=== PATIENT | female | born 1950 | race Caucasian/White ===

== ENCOUNTER 2020-11-24 18:09 | Emergency (ER) | payer MEDICARE, MEDICAID | END 2020-11-24 18:50 | disposition left against medical advice (07) | LOC: JD.ED 18:09 | DX: R06.02 Shortness of breath (principal); Z53.21 Procedure and treatment not carried out due to patient leaving prior to being seen by health care provider ==

== ENCOUNTER 2020-11-24 19:22 | Emergency (ER) | payer MEDICARE, MEDICAID ==
--- NOTE | 2020-11-24 20:02 | EDM.PDOC ---
ED HPI GENERAL MEDICAL PROBLEM - General Chief Complaint: Respiratory Problem Stated Complaint: [facility] Time Seen by Provider: 11/24/20 19:34 Source of Information: Reports: Patient History Limitations: Reports: No Limitations - History of Present Illness INITIAL COMMENTS - FREE TEXT/NARRATIVE: Patient is a 70-year-old female who complains of being short of breath and having a nonproductive cough which is gotten worse over the last several days. Patient has been followed by her PCP who gave her a prescription for Zithromax 2 days ago and for prednisone approximately 1 week ago. She feels that her symptoms have gotten worse and she is having some dyspnea with exertion. She denies any fever or chills or nausea vomiting or diarrhea. Patient has no loss of smell or taste. She has not been vaccinated against Covid. She is not a cigarette smoker. Duration: Week(s): (1) Location: Reports: Chest Quality: Reports: Pressure Severity: Mild Improves with: Reports: None Worsens with: Reports: Movement Associated Symptoms: Reports: No Other Symptoms - Related Data Allergies Allergy/AdvReac Type Severity Reaction Status Date / Time amlodipine Allergy Severe Swelling Verified 11/24/20 20:14 amoxicillin [From Augmentin] Allergy Severe Vomiting Verified 11/24/20 20:14 cefuroxime Allergy Severe Abdominal Verified 11/24/20 20:14 Pain celecoxib [From Celebrex] Allergy Severe Cannot Verified 11/24/20 20:14 Remember cephalexin Allergy Severe Cannot Verified 11/24/20 20:14 Remember cetirizine [From Zyrtec] Allergy Severe Insomnia Verified 11/24/20 20:14 ciprofloxacin [From Cipro] Allergy Severe Abdominal Verified 11/24/20 20:14 Pain clarithromycin [From Biaxin] Allergy Severe Itching Verified 11/24/20 20:14 clavulanic acid Allergy Severe Vomiting Verified 11/24/20 20:14 [From Augmentin] clindamycin Allergy Severe Indigestion Verified 11/24/20 20:14 doxycycline Allergy Severe Pain Verified 11/24/20 20:14 duloxetine Allergy Severe Cannot Verified 11/24/20 20:14 Remember latex Allergy Severe Other Verified 11/24/20 20:14 omeprazole Allergy Severe Diarrhea Verified 11/24/20 20:14 pregabalin Allergy Severe Cannot Verified 11/24/20 20:14 Remember Sulfa (Sulfonamide Allergy Severe Cannot Verified 11/24/20 20:14 Antibiotics) Remember antidepressants Allergy Severe Other Uncoded 11/24/20 20:14 Home Meds: Home Meds Albuterol [Ventolin HFA] 2 puff INH Q6H PRN #1 puff 11/25/20 [Rx] predniSONE [Prednisone] 20 mg PO DAILY #5 tablet 11/25/20 [Rx] ED ROS GENERAL - Review of Systems Review Of Systems: Comprehensive ROS is negative, except as noted in HPI. Constitutional: Reports: No Symptoms. Denies: Fever, Chills, Malaise Respiratory: Reports: Shortness of Breath, Cough. Denies: Sputum Cardiovascular: Reports: Chest Pain ED EXAM, GENERAL - Physical Exam Exam: See Below Exam Limited By: No Limitations General Appearance: Alert, No Apparent Distress Nose: Normal Inspection Head: Atraumatic Neck: Normal Inspection Respiratory/Chest: No Respiratory Distress, Lungs Clear, Normal Breath Sounds. No: Rales, Rhonchi, Wheezing Cardiovascular: No Edema, No JVD, Tachycardia GI/Abdominal: Normal Bowel Sounds, No Distention Back Exam: Normal Inspection Extremities: Normal Inspection, No Pedal Edema Neurological: Alert, Oriented Psychiatric: Anxious Skin Exam: Warm, Dry Lymphatic: No Adenopathy Course - Vital Signs Text/Narrative:: Patient's chest x-ray shows bibasilar peripheral alveolar opacities, left greater than right, consistent with multifocal pneumonia versus atelectasis. Patient's COVID-19 returned as positive otherwise her labs are unremarkable. I have discussed her mother's symptoms and findings and results with her daughter who lives in [place] who requested that we admit her mother since she is feeling weak and I informed her I was not able to do so since there are no beds in our hospital and she does not meet admission criteria with a room air O2 sat of 95% and no dyspnea with exertion. Daughter was angry with my not being able to admit her mother. Patient is receiving some Regeneron and will continue on her Zithromax and will give her a prescription for additional steroids. I am recommending she get a home pulse oximeter unit so she can monitor her O2 status and if this is worse or she feels worse she should return to the emergency department for evaluation and possible admission at that time. Last Recorded V/S: Last Vital Signs Temp 97.6 F 11/24/20 23:25 Pulse 112 H 11/25/20 00:16 Resp 18 11/25/20 00:16 BP 168/86 H 11/25/20 00:16 Pulse Ox 97 11/25/20 00:16 - Orders/Labs/Meds Orders: Active Orders 24 hr Category Date Time Status RT Aerosol Therapy [RC] ASDIRECTED Care 11/24/20 20:04 Active Vital Signs [RC] Q15M Care 11/24/20 22:22 Active CXR [Chest 2V] [CR] Stat Exams 11/24/20 20:04 Taken EPINEPHrine [Adrenalin] Med 11/24/20 22:20 Active 0.3 mg IM ONETIME PRN Famotidine [Pepcid] Med 11/24/20 22:20 Active 20 mg IVPUSH ONETIME PRN Sodium Chloride 0.9% [Saline Flush] Med 11/24/20 22:30 Active 30 ml FLUSH ASDIRECTED diphenhydrAMINE [Benadryl] Med 11/24/20 22:20 Active 50 mg IVPUSH ONETIME PRN methylPREDNISolone Sod Succ [Solu-MEDROL] Med 11/24/20 22:20 Active 125 mg IVPUSH ONETIME PRN Medication Orders Diphenhydramine HCl (Diphenhydramine 50 Mg/Ml Sdv) 50 mg IVPUSH ONETIME PRN PRN Reason: hypersensitivity reaction Epinephrine HCl (Epinephrine 1 Mg/Ml Sdv) 0.3 mg IM ONETIME PRN PRN Reason: hypersensitivity reaction Famotidine (Famotidine 20 Mg/2 Ml Sdv) 20 mg IVPUSH ONETIME PRN PRN Reason: hypersensitivity reaction Methylprednisolone Sodium Succinate (Methylprednisolone Sodium Succinate 125 Mg/2 Ml Sdv) 125 mg IVPUSH ONETIME PRN PRN Reason: hypersensitivity reaction Sodium Chloride (Sodium Chloride 0.9% 10 Ml Syringe) 30 ml FLUSH ASDIRECTED BOB Labs: Laboratory Tests 11/24/20 11/24/20 11/24/20 Range/Units 19:50 20:40 20:40 WBC 6.55 (3.98-10.04) K/mm3 RBC 4.93 (3.98-5.22) M/mm3 Hgb 14.9 (11.2-15.7) gm/dl Hct 43.2 (34.1-44.9) % MCV 87.6 (79.4-94.8) fl MCH 30.2 (25.6-32.2) pg MCHC 34.5 (32.2-35.5) g/dl RDW Std Deviation 41.0 (36.4-46.3) fL Plt Count 196 (182-369) K/mm3 MPV 9.5 (9.4-12.3) fl Neutrophils % (Manual) 52 (40-60) % Band Neutrophils % 0 (0-10) % Lymphocytes % (Manual) 39 (20-40) % Atypical Lymphs % 0 % Monocytes % (Manual) 9 (2-10) % Eosinophils % (Manual) 0 L (0.7-5.8) % Basophils % (Manual) 0 L (0.1-1.2) Platelet Estimate Adequate RBC Morph Comment Normal Sodium 137 (136-145) mEq/L Potassium 3.0 L (3.5-5.1) mEq/L Chloride 101 (98-107) mEq/L Carbon Dioxide 26 (21-32) mEq/L Anion Gap 13.0 (5-15) BUN 21 H (7-18) mg/dL Creatinine 0.8 (0.55-1.02) mg/dL Est Cr Clr Drug Dosing TNP Estimated GFR (MDRD) > 60 (>60) mL/min BUN/Creatinine Ratio 26.3 H (14-18) Glucose 100 H (70-99) mg/dL Calcium 8.7 (8.5-10.1) mg/dL Total Bilirubin 0.9 (0.2-1.0) mg/dL AST 31 (15-37) U/L ALT 43 (14-59) U/L Alkaline Phosphatase 70 (46-116) U/L Troponin I < 0.017 (0.00-0.056) ng/mL NT-Pro-B Natriuret Pep (0-125) pg/mL Total Protein 7.0 (6.4-8.2) g/dl Albumin 3.6 (3.4-5.0) g/dl Globulin 3.4 gm/dL Albumin/Globulin Ratio 1.1 (1-2) SARS-CoV-2 RNA (TACO) Positive H (NEGATIVE) 11/24/20 Range/Units 20:40 WBC (3.98-10.04) K/mm3 RBC (3.98-5.22) M/mm3 Hgb (11.2-15.7) gm/dl Hct (34.1-44.9) % MCV (79.4-94.8) fl MCH (25.6-32.2) pg MCHC (32.2-35.5) g/dl RDW Std Deviation (36.4-46.3) fL Plt Count (182-369) K/mm3 MPV (9.4-12.3) fl Neutrophils % (Manual) (40-60) % Band Neutrophils % (0-10) % Lymphocytes % (Manual) (20-40) % Atypical Lymphs % % Monocytes % (Manual) (2-10) % Eosinophils % (Manual) (0.7-5.8) % Basophils % (Manual) (0.1-1.2) Platelet Estimate RBC Morph Comment Sodium (136-145) mEq/L Potassium (3.5-5.1) mEq/L Chloride (98-107) mEq/L Carbon Dioxide (21-32) mEq/L Anion Gap (5-15) BUN (7-18) mg/dL Creatinine (0.55-1.02) mg/dL Est Cr Clr Drug Dosing Estimated GFR (MDRD) (>60) mL/min BUN/Creatinine Ratio (14-18) Glucose (70-99) mg/dL Calcium (8.5-10.1) mg/dL Total Bilirubin (0.2-1.0) mg/dL AST (15-37) U/L ALT (14-59) U/L Alkaline Phosphatase (46-116) U/L Troponin I (0.00-0.056) ng/mL NT-Pro-B Natriuret Pep 161 H (0-125) pg/mL Total Protein (6.4-8.2) g/dl Albumin (3.4-5.0) g/dl Globulin gm/dL Albumin/Globulin Ratio (1-2) SARS-CoV-2 RNA (TACO) (NEGATIVE) Meds: Medications Generic Name Dose Route Start Last Admin Trade Name Freq PRN Reason Stop Dose Admin Diphenhydramine HCl 50 mg 11/24/20 22:20 Diphenhydramine 50 Mg/Ml Sdv IVPUSH ONETIME PRN hypersensitivity reaction Epinephrine HCl 0.3 mg 11/24/20 22:20 Epinephrine 1 Mg/Ml Sdv IM ONETIME PRN hypersensitivity reaction Famotidine 20 mg 11/24/20 22:20 Famotidine 20 Mg/2 Ml Sdv IVPUSH ONETIME PRN hypersensitivity reaction Methylprednisolone Sodium Succinate 125 mg 11/24/20 22:20 Methylprednisolone Sodium Succinate 125 Mg/2 Ml Sdv IVPUSH ONETIME PRN hypersensitivity reaction Sodium Chloride 30 ml 11/24/20 22:30 Sodium Chloride 0.9% 10 Ml Syringe FLUSH ASDIRECTED BOB Discontinued Medications Generic Name Dose Route Start Last Admin Trade Name Freq PRN Reason Stop Dose Admin Albuterol/Ipratropium 3 ml 11/24/20 20:03 11/24/20 20:25 Albuterol/Ipratropium 3.0-0.5 Mg/3 Ml Neb Soln NEB 11/24/20 20:04 3 ml ONETIME ONE Administration Sodium Chloride 1,000 mls @ 500 mls/hr 11/24/20 20:03 11/24/20 20:45 Normal Saline IV 11/24/20 22:02 500 mls/hr ONETIME ONE Administration CASIRIVIMAB/IMDEVIMAB 10 ml/ 110 mls @ 220 mls/hr 11/24/20 22:20 11/24/20 23:24 Sodium Chloride IV 11/24/20 22:49 220 mls/hr ONETIME ONE Administration Prednisone 40 mg 11/24/20 20:03 11/24/20 20:46 Prednisone 20 Mg Tab PO 11/24/20 20:04 40 mg ONETIME ONE Administration Departure - Departure Time of Disposition: 00:33 Disposition: Home, Self-Care 01 Condition: Good Clinical Impression: Pneumonia, COVID-19 - Discharge Information Instructions: Shortness of Breath, Adult, [id number], Symptoms of Coronavirus - CDC (05/03/2020), COVID-19 Frequently Asked Questions, COVID-19: Quarantine vs. Isolation - CDC (02/26/2020) Referrals: Neris Fatima MD [Primary Care Provider] - Forms: ED Department Discharge Additional Instructions: . Prednisone as prescribed. Albuterol inhaler if needed. Return to ER if worse. If possible by a home pulse oximeter to monitor your oxygen levels. If below 90 or you're more symptomatic return to emergency department. See your PCP this week for recheck. Sepsis Event Note (ED) - Evaluation Sepsis Screening Result: No Definite Risk - Focused Exam Vital Signs: Vital Signs Temp Pulse Resp BP Pulse Ox Pulse Ox 11/25/20 00:16 112 H 18 168/86 H 97 11/25/20 00:11 112 H 24 H 175/88 H 94 L 11/24/20 23:45 111 H 19 165/83 H 93 L 11/24/20 23:25 97.6 F 116 H 19 161/90 H 94 L 11/24/20 20:27 96 11/24/20 19:40 98.6 F 102 H 16 163/76 H 94 L - My Orders Last 24 Hours: My Active Orders 11/24/20 20:04 RT Aerosol Therapy [RC] ASDIRECTED CXR [Chest 2V] [CR] Stat 11/24/20 22:20 EPINEPHrine [Adrenalin] 0.3 mg IM ONETIME PRN Famotidine [Pepcid] 20 mg IVPUSH ONETIME PRN diphenhydrAMINE [Benadryl] 50 mg IVPUSH ONETIME PRN methylPREDNISolone Sod Succ [Solu-MEDROL] 125 mg IVPUSH ONETIME PRN 11/24/20 22:22 Vital Signs [RC] Q15M 11/24/20 22:30 Sodium Chloride 0.9% [Saline Flush] 30 ml FLUSH ASDIRECTED - Assessment/Plan Last 24 Hours: My Active Orders 11/24/20 20:04 RT Aerosol Therapy [RC] ASDIRECTED CXR [Chest 2V] [CR] Stat 11/24/20 22:20 EPINEPHrine [Adrenalin] 0.3 mg IM ONETIME PRN Famotidine [Pepcid] 20 mg IVPUSH ONETIME PRN diphenhydrAMINE [Benadryl] 50 mg IVPUSH ONETIME PRN methylPREDNISolone Sod Succ [Solu-MEDROL] 125 mg IVPUSH ONETIME PRN 11/24/20 22:22 Vital Signs [RC] Q15M 11/24/20 22:30 Sodium Chloride 0.9% [Saline Flush] 30 ml FLUSH ASDIRECTED
[2020-11-24] MEDS ORDERED: Sodium Chloride 0.9% 1,000 ML IV ONE (20:03)
[2020-11-24] MEDS ORDERED: Albuterol/Ipratropium 3.0-0.5 MG/3 ML Neb Soln NEB ONE (20:03)
[2020-11-24] MEDS ORDERED: predniSONE 20 MG Tab PO ONE (20:03)
[2020-11-24] MEDS ORDERED: EPINEPHrine 1 MG/ML SDV IM PRN (22:20)
[2020-11-24] MEDS ORDERED: Famotidine 20 MG/2 ML SDV IVPUSH PRN (22:20)
[2020-11-24] MEDS ORDERED: diphenhydrAMINE 50 MG/ML SDV IVPUSH PRN (22:20)
[2020-11-24] MEDS ORDERED: methylPREDNISolone Sodium Succinate 125 MG/2 ML SDV IVPUSH PRN (22:20)
[2020-11-24] MEDS ORDERED: Sodium Chloride 0.9% 10 ML Syringe FLUSH SCH (22:30)
--- NOTE | 2020-11-25 07:23 | CR ---
Chest: PA and lateral views of the chest were obtained. Comparison: No prior chest imaging is available. Slight density is seen in the left lung base. Lung markings are diffusely increased. Heart size and mediastinum are normal. Bony structures show mild degenerative change within the spine. No acute osseous abnormality is appreciated. Impression: 1. Patchy interstitial change, possibly due to chronic change versus diffuse bronchitis. Old chest x-ray would be needed to differentiate. 2. Slight density within the left lung base most likely within the lingula either due to atelectasis or an area of pneumonia. Diagnostic code #3 I agree with preliminary report from [facility], finalized on 11/24/20, 11:44 PM CDT, code 1
== END 2020-11-25 01:15 | disposition home or self-care (01) ==
LOC: JD.ED 19:22
DX: U07.1 COVID-19 (principal); J12.82 Pneumonia due to coronavirus disease 2019; Z88.8 Allergy status to other drugs, medicaments and biological substances; Z88.0 Allergy status to penicillin; Z88.1 Allergy status to other antibiotic agents; Z91.040 Latex allergy status; Z88.2 Allergy status to sulfonamides
CPT/HCPCS: 36415; 71046; 80053; 83880; 84484; 85007; 85027; 94640; 99285; J7030; J7512; M0243; Q0243; U0002; 99284; J7620-GY

== ENCOUNTER 2021-04-11 11:33 | Emergency (ER) | payer MEDICARE, MEDICAID | END 2021-04-11 13:52 | disposition home or self-care (01) | LOC: JD.ED 11:33 | DX: U07.1 COVID-19 (principal); I10 Essential (primary) hypertension; E03.9 Hypothyroidism, unspecified; Z88.8 Allergy status to other drugs, medicaments and biological substances; Z88.0 Allergy status to penicillin; Z86.16 Personal history of COVID-19; Z88.2 Allergy status to sulfonamides; Z79.899 Other long term (current) drug therapy | CPT/HCPCS: 71045; 71045-26; 99283; 99284-25 ==

== ENCOUNTER 2022-01-17 09:01 | Day surgery (SDC) | payer MEDICARE, MEDICAID ==
[2022-01-17] MEDS ORDERED: fentaNYL 100 MCG/2 ML SDV ONE (11:26)
[2022-01-17] MEDS ORDERED: Propofol 200 MG/20 ML SDV ONE (11:26)
[2022-01-17] MEDS ORDERED: Lidocaine 1% 2 ML ONE (11:29)
== END 2022-01-17 13:15 ==
LOC: JD.SDS 09:01
PROVIDERS: ATTEND Surgery
DX: K94.23 Gastrostomy malfunction (principal); T85.598A Other mechanical complication of other gastrointestinal prosthetic devices, implants and grafts, initial encounter; G12.21 Amyotrophic lateral sclerosis; I10 Essential (primary) hypertension; I73.9 Peripheral vascular disease, unspecified; J40 Bronchitis, not specified as acute or chronic; M19.90 Unspecified osteoarthritis, unspecified site; F41.9 Anxiety disorder, unspecified; E03.9 Hypothyroidism, unspecified; N39.0 Urinary tract infection, site not specified; Z79.899 Other long term (current) drug therapy; Z79.82 Long term (current) use of aspirin; Z79.890 Hormone replacement therapy; Z88.8 Allergy status to other drugs, medicaments and biological substances; Z88.1 Allergy status to other antibiotic agents; Z88.6 Allergy status to analgesic agent; Z88.2 Allergy status to sulfonamides; Z91.040 Latex allergy status; Z86.16 Personal history of COVID-19; Z87.891 Personal history of nicotine dependence; Z98.890 Other specified postprocedural states; Z90.49 Acquired absence of other specified parts of digestive tract
CPT/HCPCS: 43246; J2704; J3010; 00700